=== PATIENT | male | born 1975 | race Caucasian/White ===

== ENCOUNTER 2020-11-18 13:39 | Emergency (ER) | payer SELFPAY ==
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
[2020-11-18 13:40] VITALS: BP 179/94; PULSE 79; RESP 20; TEMP 36.1; O2SAT 99
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
[2020-11-18] MEDS: TETANUS,DIPHTHERIA,AC PERTUSSIS ADULT (0.5 ML) BOOSTRIX IM (14:59)
[2020-11-18] MEDS: LIDOCAINE HCL 1% LOCAL INJ 20 ML VIAL (16:55)
== END 2020-11-18 16:56 | disposition home or self-care (01) ==
PROVIDERS: Emergency Provider Emergency Medicine
DX: S01.112A Laceration without foreign body of left eyelid and periocular area, initial encounter (principal); Y04.0XXA Assault by unarmed brawl or fight, initial encounter; Z23 Encounter for immunization
CPT/HCPCS: 12011; 70486; 90471; 90715; 99284